=== PATIENT | male | born 1985 | race Caucasian/White ===

== ENCOUNTER → 2017-01-24 | Outpatient (CLI) | payer OTHER ==
--- NOTE | 2017-01-24 11:30 | KCIC ---
MRI Lumbar Spine without contrast History: Spinal stenosis, chronic low back pain for a few years, pain into the bilateral hips Technique: Multiplanar, multi sequential noncontrast MR imaging was performed of the lumbar spine. Contrast: None Comparison: None Findings: Most inferior fully formed intervertebral disc space is considered L5-S1 for this report. Lumbar vertebral body stature is maintained. There is minimal grade 1 anterior spondylolisthesis at what is considered L5-S1. There are posterior annular tears L3-4 to L5-S1. There is moderate to severe degenerative disc disease at L5-S1, [id number] degenerative disc disease at L4-5 and minimally at L3-4. Conus terminates at T12-L1. There is a small hemangiomas of the right L1 vertebral body. L2-L3: Spinal canal and neural foramina are adequate. L3-L4: There is a shallow broad protrusion posteriorly, mild indentation upon the ventral thecal sac somewhat greater in the right lateral recess. While near, there is no significant impingement of the descending right L4 nerve root. There is very mild narrowing of the far right lateral recess. Neural foramina are adequate. L4-L5: There is a shallow broad posterior bulge/protrusion with mild indentation upon the ventral thecal sac greater in the right lateral recess. There is very mild narrowing of the far right lateral recess. Neural foramina are overall adequate. L5-S1: There is mild facet degenerative change. Spinal canal is overall adequate. Neural foramina are adequate. Impression: 1. Most inferior fully formed intervertebral disc space is considered L5-S1, minimal grade 1 anterior spondylolisthesis at what is considered L5-S1. There is degenerative disc disease at L5-S1, to lesser degree at L4-5 and L3-4. There are posterior annular tears L3-4 to L5-S1. 2. There is no significant lumbar spinal stenosis. There are shallow bulges/protrusions at L3-4 and L4-5 as stated with mild indentation upon the ventral thecal sac greater in the right lateral recesses, overall very mild narrowing of the far right lateral recesses. Electronically signed by: Juan Peraza MD (01/24/2017 11:27 AM) [email or web address]
== END | disposition home or self-care (01) ==
LOC: KCIC MRI 10:16
PROVIDERS: ATTEND Family Medicine
DX: M48.06 Spinal stenosis, lumbar region (principal); M51.36 Other intervertebral disc degeneration, lumbar region; M51.37 Other intervertebral disc degeneration, lumbosacral region; G89.29 Other chronic pain; M25.552 Pain in left hip; M25.551 Pain in right hip
CPT/HCPCS: 72148

== ENCOUNTER → 2020-08-13 | Outpatient (CLI) | payer OTHER ==
[~2020-08-13] MED LIST: CONTRAST GIVEN. MC PRN; IOHEXOL 180 MG/ML 10 ML VIAL. IT ONE
[2020-08-13 14:35] VITALS: BP 114/66
[2020-08-13 15:00] VITALS: BP 107/69
--- NOTE | 2020-08-13 15:04 | RAD ---
EXAM: Fluoroscopic guided lumbar puncture for lumbar myelography; lumbar spine CT myelogram. HISTORY: Lower back pain and lower extremity numbness. TECHNIQUE: The risks of the procedure discussed with the patient and written and verbal consent was o btained. A timeout was performed. Fluoroscopic imaging of the lumbar spine was performed and a site o verlying L4-L5 was selected for needle entry. The skin in this location was sterilely prepped, draped and infiltrated with 1 percent lidocaine. A 22-gauge spinal needle was advanced into the thecal sac. 15 cc Omnipaque 180 intrathecal contrast was then injected into the thecal sac. The needle was remov ed and a sterile measures placed at the needle entry site. Fluoroscopic upright neutral, flexion and extension and supine bilateral oblique and crosstable lateral views of the lumbar spine were obtained . 6 fluoroscopic images were obtained for total fluoroscopy time of 0.9 minutes. The patient tolerate d the procedure without difficulty and was transferred to the CT suite for the post injection CT port ion of the exam. The patient was provided with post myelogram instructions. Computed tomographic imag es of the lumbar spine were obtained without contrast. Multiplanar reformatting was performed. *One or more of the following individualized dose reduction techniques were utilized for this examina tion: 1. Automated exposure control. 2. Adjustment of the mA and/or kV according to patient size. 3. Use of iterative reconstruction technique. COMPARISON: MRI dated 04/17/2020 and 01/22/2017. FINDINGS: The fluoroscopic images demonstrate grade 1 anterolisthesis of L5 on S1. This measures appr oximately 4 mm in neutral position and is not changed between flexion and extension. The CT images re demonstrate 4 mm anterolisthesis of L5 on S1. There is a corticated ossicle or chronic nonunited bone fragment involving the left inferior articular facet at L5. There is no pars defect at this level. There is a tiny inferior endplate Schmorl's node at L1. There is disc space narrowing at L5-S1. The c onus terminates at T12. The T12 ribs are hypoplastic, a normal variant. The left kidney is absent. Th e remainder of the visualized visceral structures are unremarkable. There is minimal vacuum phenomeno n involving the sacroiliac joints and degenerative subchondral sclerosis and spurring involving the r ight sacroiliac joint. At L1-L2, there is no stenosis. At L2-L3, there is no stenosis. At L3-L4, there is a minimal shallow right paracentral disc protrusion. There is mild bilateral kaylee inal stenosis. At L4-L5, there is a disc bulge and endplate remodeling. There is mild to moderate right and mild lef t foraminal stenosis. At L5-S1, there is endplate remodeling. There is grade 1 anterolisthesis. There is moderate left grea ter than right facet arthropathy. There is mild bilateral foraminal stenosis. IMPRESSION: 1. Degenerative change involving the lumbar spine, described in detail above. This is associated is m ild bilateral foraminal stenosis at L3-L4, [id number] right and mild left foraminal stenosis at L4-L5 and mild lateral foraminal stenosis at L5-S1. 2. Grade 1 anterolisthesis of L5 on S1. This is not change between flexion and extension. 3. Note is made that the vertebral numbering system utilized for this exam assumes hypoplastic T12 ri bs and 5 nonrib-bearing lumbar segments. This is in keeping with the numbering system utilized on the comparison MRI performed 01/22/2017. Electronically signed by: Monet Felix MD (08/13/2020 3:01 PM) [id number]
[2020-08-13 15:10] VITALS: BP 107/69
--- NOTE | 2020-08-13 15:20 | NUR ---
Patient taken to vehicle via wheelchair. driving. Copy of signed procedure instructions given to patient. Reviewed w/ at bedside. Both verbalized understanding. VS stable, no headache, no bleeding at access site.
== END | disposition home or self-care (01) ==
LOC: RAD 14:30
PROVIDERS: ATTEND Neurological Surgery
DX: M54.16 Radiculopathy, lumbar region (principal); M48.061 Spinal stenosis, lumbar region without neurogenic claudication
CPT/HCPCS: 62304; 72132; Q9965

== ENCOUNTER → 2020-09-02 | Outpatient (CLI) | payer OTHER ==
[2020-08-13 15:00] VITALS: BP 107/69
[~2020-09-02] MED LIST changes: -CONTRAST GIVEN. MC PRN; +CYCL10TA2 PO; -IOHEXOL 180 MG/ML 10 ML VIAL. IT ONE; +IOHEXOL 180 MG/ML 10 ML VIAL. ONE; +methylPREDNISolone ACETATE 40 MG/ML VIAL. ONE; +methylPREDNISolone ACETATE 80 MG/ML VIAL. ONE
--- NOTE | 2020-09-02 14:37 | PDOC1 ---
INITIAL PAIN CONSULT DATE OF SERVICE: DOS: DATE: 09/02/20 TIME: 14:30 CHIEF COMPLAINT: Chief Complaint: Low back and right lower extremity pain HISTORY OF PRESENT ILLNESS: 35-year-old male presents with history of pain in the low back and right lower extremity for about 15 years worse over the past year or so patient reports he has had chiropractic treatment in the past as well as recently which is helpful but only temporarily. Patient reports he had some type of injection in his back a few years ago which only helped for a few hours. Patient reports that the pain now is in the low back across the low back bilaterally more on the right than the left but present bilaterally with radiating pain in the right lower extremity posterior lateral thigh anterior thigh as well patient reports is constant in the back sharp in the leg stabbing and throbbing in the back shooting in the right leg with tingling and numbness on the right thigh laterally with a burning pain in the thigh and aching in the back. Patient reports is worse with walking standing changing positions better with sitting or laying down awakens her from sleep least once or twice a night. Patient repor hannah generally does not affect his bowel bladder control does affect his ability to walk as it becomes more fatigued on the right leg but is had no loss of motor function or stumbling or falling. Patient is been taking hydrocodone as well as Tylenol with codeine and is tried Flexeril which is not significantly helpful hydrocodone and Tylenol with codeine does help but is been 6 months at [place] since he is taking hydrocodone 3 months that he had the Tylenol with codeine. Patient reports that he tried heat which does not generally help low back as well patient had a myelogram August 13, 2020 showing degenerative changes with mild bilateral foraminal stenosis L3-4 mild to moderate right and mild left foraminal stenosis L4-5 and mild lateral foraminal stenosis L5-S1. Patient rates his disability rating from 0-10 10 being the worst, as a 6 with family home responsibilities and social activity 8 with occupational activity 5 with recreation, 7 with sexual behavior and self-care activity and 5 with life support activities. PAST MEDICAL HISTORY: PMH: History of arthritis, cigar smoking PREVIOUS SURGERIES: Past Surgical Hx: Hernia repair x2, kidney donor left kidney. CURRENT MEDICATIONS: Current Meds: Active Scripts Medications Dose Route/Sig Max Daily Dose Days Date Category Cyclobenzaprine Hcl 10 Mg Tablet 1 Tab PO QHS 09/02/20 Reported ALLERGIES; Allergies: Coded Allergies: No Known Drug Allergies (Unverified , 08/13/20) FAMILY HISTORY: Family Hx: No major medical problems or conditions that he is aware of, renal failure in patient's sister. SOCIAL HISTORY: Social Hx: Patient drinks alcohol about 6 alcoholic drinks every 4 to 5 months smokes cigars and has been past 15 years continues to smoke does not use any illegal illicit or recreational drugs is lives with his spouse has 3 children living home lives locally in [facility]. Patient works as a furniture sales consultant REVIEW OF SYSTEMS: ROS: Positive for those items mentioned in history of present illness, all systems are reviewed, otherwise negative ,and are complete full and well-documented on patient's chart. PHYSICAL EXAM: VS: Blood pressure is 124/79 pulse 89 respirations 18 temperature 97.7 F, height is 6 foot weight 183 pounds PE: PHYSICAL EXAMINATION: GENERAL: The patient is awake, alert, oriented, appropriate, very pleasant demeanor HEENT: Shows normocephalic, atraumatic. Extraocular movements are intact and symmetrical. Oral cavity: Mucous membranes moist and pink. Dentition is intact. NECK: Shows anterior throat supple without palpable lymphadenopathy noted. Swallow reflex symmetrical. CHEST: Shows normal on inspection. Breath sounds are clear bilaterally, no rales rhonchi or wheezes auscultated. HEART: Shows S1, S2 clear. No murmurs auscultated. ABDOMEN: Soft, nontender, nondistended, flat. No palpable organomegaly is noted. No rebound or guarding demonstrated. BACK: Shows spine grossly in the midline. Normal-appearing cervical lordotic curvature. There is slightly increased thoracic kyphosis, some flattening of the lumbar lordotic curvature. Lumbar paraspinous muscles show symmetrical on inspection, on palpation shows some moderate tenderness diffusely throughout the upper, middle and lower distribution of the paraspinous muscles bilaterally and also into the lower thoracic paraspinous musculature, firm and tender, but without specific trigger points, without radiation of pain. The patient has good rotational motion of the lumbar spine, both laterally as well as extension and flexion without significant difficulty. EXTREMITIES: Lower extremities show deep tendon reflexes 2+ in the patellar and tendo calcaneus tendons. Motor exam is 5 on a scale of 5 with right dorsiflexion, extension, quadriceps and hamstring flexion and 5/5 on the left. Peripheral pulses are 2+ posterior tibial. No peripheral edema is noted bilaterally. Lower extremities are warm and dry to touch, equal in color and appearance. Straight leg raise noted to be negative bilaterally. Gaenslen's and Waylon's maneuvers are negative bilaterally as well. The patient is able to stand, stand on his toes without significant difficulty or loss of balance walks with a normal-appearing gait does not appear to favor the right or left lower extremity significantly with a short walk in the office today does not use any assistive devices to ambulate. SKIN: Shows warm and dry, good turgor. No edema. No sores, rashes or bruising throughout. IMPRESSION: Impression: 35-year-old male with long history of low back right lower extremity pain in a radicular fashion Myelogram lumbar spine as noted History of arthritis Plan: Options were discussed with the patient including conservative medical management physical therapies interventional techniques. Patient would like to pursue interventional techniques. We discussed a lumbar epidural steroid injection using description as well as anatomical models to describe the procedure. Risks were discussed including but not limited to: Bleeding, infection, possibility of epidural hematoma and subsequent neurological compromise, dural puncture, headaches, spinal cord and/or nerve damage, side effects of steroid medication, and poor results regarding pain control. Patient understands and wished to proceed. Patient will return to clinic in approximate 2 weeks for follow-up, was counseled as to return appointment activity level and side effects to be aware of. Procedure is lumbar epidural steroid injection under local anesthetic using sterile prep and drape at the L4-5 level using C-arm fluoroscopic guidance in both AP and lateral views medications injected is 120 mg Depo-Medrol + 10 mL preservative-free normal saline and 2 mL contrast- condition at discharge is stable patient tolerated procedure well had no complications. MARSHA SAUCEDA MD Sep 02, 2020 14:37
== END | disposition home or self-care (01) ==
LOC: PNCL 13:15
PROVIDERS: ATTEND Anesthesiology
DX: M54.5 Low back pain (principal); M79.604 Pain in right leg; M19.90 Unspecified osteoarthritis, unspecified site; Z87.891 Personal history of nicotine dependence; Z79.899 Other long term (current) drug therapy; Z98.890 Other specified postprocedural states
CPT/HCPCS: 62323; J1030; J1040; Q9965; 77002

== ENCOUNTER → 2020-09-16 | Outpatient (CLI) | payer OTHER ==
[2020-08-13 15:00] VITALS: BP 107/69
--- NOTE | 2020-09-16 14:24 | PDOC ---
Progress Note - Pain Clinic Date of Service: DOS: DATE: 09/16/20 TIME: 14:22 Diagnosis: Dx: Lumbar radiculopathy with lumbar degenerative disc disease lumbar spinal stenosis and lumbar spondylosis History or Present Illness: HPI: 35-year-old male returns follow-up status post lumbar epidural steroid injection x1. Patient reports about 70% improvement for the first 2 weeks and patient was very active during this time with work. Physical labor reports the pain is still doing fairly well still about 50% overall in the low back and the right leg is no longer painful patient reports is aching and dull across the low back some in the right lower extremity only very infrequently patient reports is on and off in intensity has been doing much better with distance walking doing jeffrey sehold activities work activities travel with greater ease and comfort patient rates his pain a 7 on scale 10 is worse over the past week 5 on average 3 displeasing is a 5 today. Patient reports no new motor or sensory deficits no new bowel or bladder incontinence or other complaints. Physical Exam: VS: Blood pressure is 131/86 pulse 88 respirations are 18 temperature 98.1 F height is 6 foot weight is 174 pounds PE: PHYSICAL EXAMINATION: GENERAL: The patient is awake, alert, oriented, appropriate, very pleasant demeanor HEENT: Shows normocephalic, atraumatic. Extraocular movements are intact and symmetrical. Oral cavity: Mucous membranes moist and pink. Dentition is intact. NECK: Shows anterior throat supple without palpable lymphadenopathy noted. Swallow reflex symmetrical. CHEST: Shows normal on inspection. Breath sounds are clear bilaterally, no rales or rhonchi or wheezes. HEART: Shows S1, S2 clear. No murmurs auscultated. ABDOMEN: Soft, nontender, nondistended. No palpable organomegaly is noted. No rebound or guarding demonstrated. BACK: Shows spine grossly in the midline. Normal-appearing cervical lordotic curvature. There is slightly increased thoracic kyphosis, some minor flattening of the lumbar lordotic curvature. Lumbar paraspinous muscles show symmetrical on inspection, on palpation shows some moderate tenderness diffusely throughout the upper, middle and lower distribution of the paraspinous muscles, but without specific trigger points, without radiation of pain. The patient has good rotational motion of the lumbar spine, both laterally as well as extension and flexion without significant difficulty. EXTREMITIES: Lower extremities show deep tendon reflexes 2+ in the patellar and tendo calcaneus tendons. Motor exam is 5 on a scale of 5 with right dorsiflexion, extension, quadriceps and hamstring flexion and 5/5 on the left. Peripheral pulses are 1 posterior tibial. No peripheral edema is noted bilaterally. Lower extremities are warm and dry to touch, equal in color and appearance. SKIN: Shows warm and dry, good turgor. No edema. No sores, rashes or bruising throughout. Procedure: Procedure: Options were discussed with the patient. Patient chart reviewed as was his current medication regimen updated current review of systems updated today as well. We will proceed with a second in the series lumbar epidural steroid injection today with fluoroscopic guidance. Risks were discussed including but not limited to: Bleeding, infection, possibility of epidural hematoma and subsequent neurological compromise, dural puncture, headaches, spinal cord and/or nerve damage, side effects of steroid medication, and poor results regarding pain control. Patient understands and wished to proceed. Patient will return to the clinic in approximate 2 weeks for follow-up, was counseled as return appointment, activity level, and side effects to be aware of. Medication Injected: Med Injected: Procedure is lumbar epidural steroid injection under local anesthetic using sterile prep and drape at the L4-5 level using C-arm fluoroscopic guidance in both AP and lateral views medications injected is 120 mg Depo-Medrol + 10 mL preservative-free normal saline and 2 mL contrast- condition at discharge is stable patient tolerated procedure well had no complications. Condition at Discharge: Condition at Discharge: Condition at discharge stable, patient alert the procedure well and had no complications. MARSHA SAUCEDA MD Sep 16, 2020 14:24
--- NOTE | 2020-09-16 14:25 | PDOC4 ---
PROCEDURE Procedure Patient was consented for lumbar epidural steroid injection. Risks were dis cussed including but not limited to: Bleeding, infection, possibility of epidural hematoma and subsequent neurological compromise, dural puncture, headaches, spinal cord and/or nerve damage, side effects of steroid medication, and poor results regarding pain control. Patient understands and wished to proceed. Procedure is lumbar epidural steroid injection under local anesthetic using sterile prep and drape at the L4-5 level using C-arm fluoroscopic guidance in both AP and lateral views medications injected is 120 mg Depo-Medrol + 10 mL preservative-free normal saline and 2 mL contrast- condition at discharge is stable patient tolerated procedure well had no complications. MARSHA SAUCEDA MD Sep 16, 2020 14:25
== END | disposition home or self-care (01) ==
LOC: PNCL 13:44
PROVIDERS: ATTEND Anesthesiology
DX: M51.16 Intervertebral disc disorders with radiculopathy, lumbar region (principal); M48.061 Spinal stenosis, lumbar region without neurogenic claudication; M47.26 Other spondylosis with radiculopathy, lumbar region; Z79.899 Other long term (current) drug therapy
CPT/HCPCS: 62323; J1030; J1040; Q9965